=== PATIENT | male | born 1940 | race Caucasian/White ===

== ENCOUNTER 2019-01-21 15:40 | Inpatient (IN) | payer MEDICARE, OTHER ==
[~2019-01-21] VITALS: Ht 170.2 cm; Wt 70.3 kg
[2019-01-21] MEDS ORDERED: CHOL200078 PO (19:22)
[2019-01-21] MEDS ORDERED: ROSU10TA2 PO (19:22)
[2019-01-21] MEDS ORDERED: GLIM4TAB PO (19:22)
[2019-01-21] MEDS ORDERED: LISI-607 PO (19:22)
[2019-01-21] MEDS ORDERED: DONE5TAB7 PO (19:22)
[2019-01-21] MEDS ORDERED: GABA-534 PO (19:22)
[2019-01-21] MEDS ORDERED: GABA-532 PO ×2 (19:22)
[2019-01-21] MEDS ORDERED: CITA10TA17 PO (19:22)
[2019-01-21] MEDS ORDERED: DULA1.5P SQ (19:22)
[2019-01-21] MEDS ORDERED: NITR0.4T48 SL (19:22)
[2019-01-21] MEDS ORDERED: MONT10TA22 PO (19:22)
[2019-01-21] MEDS ORDERED: TAMS-3 PO (19:22)
[2019-01-21] MEDS ORDERED: CYAN-10 IJ (19:22)
[2019-01-21] MEDS ORDERED: ALBU8.5H8 IH (19:22)
[2019-01-21] MEDS ORDERED: GABA-536 PO (19:22)
[2019-01-21] MEDS ORDERED: MOME17SP NS (19:22)
[2019-01-21] MEDS ORDERED: AMLO5TAB4 PO (19:22)
[2019-01-21 19:32] VITALS: BP 119/51
--- NOTE | 2019-01-21 22:56 | NUR ---
Received pt resting in bed. Daughter at bedside. As per shift report, pt arrived at 1820. No acute distress noted. No c/o pain or discomfort. Pertinent assessments done. 1:1 sitter at bedside for safety. Pt tends to impulsively stand up and walk without assist, unsteady gait. Oriented pt to the unit and equipment. MRSA swab sent to lab. Belonging's list in chart. Safety measures maintained. Call light and personal belongings within reach. Will continue to monitor.
[2019-01-22 04:25] VITALS: BP 131/66
[2019-01-22 08:00] VITALS: BP 137/62
--- NOTE | 2019-01-22 08:00 | NUR ---
Received patient, awake alert x1 resting in bed. With periods of confusion with 1:1 sitter at bedside. Patient impulsive as well, with baseline LOC. No headache or chest pains or SOB noted. Not in apparent pain, not in any form of distress.
--- NOTE | 2019-01-22 09:00 | NUR ---
Paged assembly instructions writer to request for medication reconciliation. Still awaiting for physician assignment for patient
[2019-01-22] MEDS ORDERED: ICOS1CAP PO (10:22)
--- NOTE | 2019-01-22 10:30 | NUR ---
Up with occupational therapy, tolerating well. Not in any pain, was able to ambulate with FWW.
--- NOTE | 2019-01-22 10:40 | NUR ---
Dr Clark informed of admission and requested for medication reconciliation.
[2019-01-22] MEDS ORDERED: ALBUTEROL SULFATE 8 GM HFA.AER.AD IH PRN (16:45)
[2019-01-22] MEDS ORDERED: ALBUTEROL SULFATE 2.5 MG/3 ML NEBU NEB PRN (17:30)
[2019-01-22] MEDS: GABAPENTIN 100 MG CAPSULE PO SCH (17:37)
[2019-01-22 19:00] VITALS: BP 142/60
--- NOTE | 2019-01-22 19:40 | NUR ---
Received patient in bed. AAO x 1-2. No acute distress or SOB noted. On room air. No complain of pain or discomfort. Pertinent assessments done. 1:1 sitter at bedside for safety. Safety measures maintained. Call light and personal belongings within reach. Will continue to monitor.
[2019-01-22] MEDS: ATORVASTATIN 20 MG TABLET PO SCH (20:48)
[2019-01-22] MEDS ORDERED: DONEPEZIL 5 MG TABLET PO SCH (21:00)
[2019-01-22] MEDS ORDERED: MOMETASONE FUROATE NASAL 17 GM SPRAY.PUMP NS SCH (21:00)
[2019-01-22] MEDS ORDERED: ZOLPIDEM 5 MG TABLET PO PRN (21:45)
[2019-01-23 05:53] VITALS: BP 149/68
[2019-01-23 07:25] VITALS: BP 148/66
[2019-01-23] MEDS: AMLODIPINE 5 MG TABLET PO SCH (08:27)
[2019-01-23] MEDS: TAMSULOSIN HCL 0.4 MG CAP.SR.24H PO SCH (08:27)
[2019-01-23] MEDS: GABAPENTIN 100 MG CAPSULE PO SCH ×3 (08:27→17:30)
[2019-01-23] MEDS: GLIMEPIRIDE 4 MG TABLET PO SCH (08:27)
[2019-01-23] MEDS: CITALOPRAM 10 MG TABLET PO SCH (08:28)
[2019-01-23] MEDS: MONTELUKAST SODIUM 10 MG TABLET PO SCH (08:28)
[2019-01-23] MEDS: FLUTICASONE PROP NASAL SPRAY 16 GM BOTTLE NS SCH (08:28)
[2019-01-23] MEDS: LISINOPRIL 5 MG TABLET PO SCH (08:28)
--- NOTE | 2019-01-23 08:54 | NUR ---
Patient noted resting in bed with a 1:1 at bed side, no complaints of pain, no signs of distress, call light in reach, bed locked and in lowest position, all needs known
[2019-01-23 16:00] VITALS: BP 118/59
[2019-01-23 19:37] VITALS: BP 114/57
--- NOTE | 2019-01-23 20:02 | NUR ---
RECEIVED PATIENT AWAKE IN BED WITH 1:1 SITTER AT BEDSIDE. PATIENT IS ALERT TO SELF. CONFUSED BUT APPROPRIATE WHEN APPROACHED AND COOPERATIVE WITH CARE. VSS. PATIENT DENIES PAIN. NO FACIAL GRIMACE NOTED. BED ALARM ON. CALL LIGHT IN REACH. ALL NEEDS ATTENDED. WILL CONTINUE TO MONITOR AND ASSESS.
[2019-01-23] MEDS: ATORVASTATIN 20 MG TABLET PO SCH (20:15)
[2019-01-23 20:19] VITALS: BP 101/58
[2019-01-24 05:15] VITALS: BP 124/64
--- NOTE | 2019-01-24 07:56 | NUR ---
Patient noted resting in bed with a 1:1 at bed side, no complaints of pain, no signs of distress, call light in reach, bed locked and in lowest position, all needs known, medications found in patient's drawer by sitter, medications turned in to pharmacy at this time
[2019-01-24 07:57] VITALS: BP 129/42
[2019-01-24] MEDS: GLIMEPIRIDE 4 MG TABLET PO SCH (08:21)
[2019-01-24] MEDS: TAMSULOSIN HCL 0.4 MG CAP.SR.24H PO SCH (08:21)
[2019-01-24] MEDS: CITALOPRAM 10 MG TABLET PO SCH (08:21)
[2019-01-24] MEDS: AMLODIPINE 5 MG TABLET PO SCH (08:21)
[2019-01-24] MEDS: GABAPENTIN 100 MG CAPSULE PO SCH ×4 (08:21→20:23)
[2019-01-24] MEDS: MONTELUKAST SODIUM 10 MG TABLET PO SCH (08:21)
[2019-01-24] MEDS: FLUTICASONE PROP NASAL SPRAY 16 GM BOTTLE NS SCH (08:22)
[2019-01-24] MEDS: LISINOPRIL 5 MG TABLET PO SCH (08:22)
[2019-01-24 16:00] VITALS: BP 120/63
--- NOTE | 2019-01-24 18:57 | NUR ---
no changes this shift, vitals are within normal limits, continues on one to one sitter, all needs met
[2019-01-24 19:23] VITALS: BP 112/45
--- NOTE | 2019-01-24 19:41 | NUR ---
Received patient in bed. AAO x 3. No acute distress or SOB noted. On room air. No complain of pain or discomfort. Pertinent assessments done. 1:1 sitter at bedside for safety. Safety measures maintained. Call light and personal belongings within reach. Will continue to monitor.
[2019-01-24] MEDS: ATORVASTATIN 20 MG TABLET PO SCH (20:23)
[2019-01-24] MEDS: GABAPENTIN 300 MG CAPSULE PO SCH (20:23)
[2019-01-25 04:52] VITALS: BP 145/60
--- NOTE | 2019-01-25 06:57 | NUR ---
End of the shift note Patient was stable throughout the shift and had a good sleep last night. No signs of acute distress or SOB noted. Remained with 1:1 sitter for safety. All due medication given as ordered and well tolerated. All needs attended promptly. Safety measures observed. Fall prevention maintained. Bed in low position, brake and alarm on, side rails up x2 for her safety. Will continue to monitor and will endorse to oncoming nurse accordingly.
[2019-01-25 08:00] VITALS: BP 124/56
[2019-01-25] MEDS: CITALOPRAM 10 MG TABLET PO SCH (08:25)
[2019-01-25] MEDS: TAMSULOSIN HCL 0.4 MG CAP.SR.24H PO SCH (08:25)
[2019-01-25] MEDS: GABAPENTIN 100 MG CAPSULE PO SCH ×4 (08:25→21:19)
[2019-01-25] MEDS: AMLODIPINE 5 MG TABLET PO SCH (08:25)
[2019-01-25] MEDS: MONTELUKAST SODIUM 10 MG TABLET PO SCH (08:25)
[2019-01-25] MEDS: LISINOPRIL 5 MG TABLET PO SCH (08:25)
[2019-01-25] MEDS: FLUTICASONE PROP NASAL SPRAY 16 GM BOTTLE NS SCH (08:26)
[2019-01-25] MEDS: GLIMEPIRIDE 4 MG TABLET PO SCH (08:26)
[2019-01-25 09:48] LABS: BASOPHILS # (AUTO) 0.1 K/uL (0.0-8.0); BASOPHILS % (AUTO) 1.1 % (0.0-2.0); EOSINOPHILS # (AUTO) 0.2 K/uL (0.0-0.7); EOSINOPHILS % (AUTO) 3.1 % (0.0-7.0); HEMATOCRIT 38.2 % (36.7-47.1); HEMOGLOBIN 12.8 g/dL (12.5-16.3); LYMPHOCYTES # (AUTO) 1.2 K/uL (20.0-40.0); LYMPHOCYTES % (AUTO) 18.1 % (20.5-51.5); MEAN CORPUSCULAR HEMOGLOBIN 31.4 uug (23.8-33.4); MEAN CORPUSCULAR HGB CONC 33 g/dL (32.5-36.3); MEAN CORPUSCULAR VOLUME 94.1 fL (73.0-96.2); MONOCYTES # (AUTO) 0.7 K/uL (2.0-10.0); MONOCYTES % (AUTO) 10.3 % (0.0-11.0); NEUTROPHILS # (AUTO) 4.5 K/uL (1.8-8.9); NEUTROPHILS % (AUTO) 67.4 % (38.5-71.5); PLATELET COUNT (AUTO) 376 K/uL (152-348); RED BLOOD CELL COUNT(AUTO) 4.06 MIL/uL (4.06-5.63); WHITE BLOOD COUNT (AUTO) 6.6 K/uL (3.6-10.2)
[2019-01-25 10:00] LABS: ALANINE AMINOTRANSFERASE 41 U/L (16-63); ALKALINE PHOSPHATASE 83 U/L (50-136); ASPARTATE AMINOTRANSFERASE 22 U/L (15-37); BILIRUBIN,TOTAL 0.9 mg/dL (0.2-1.0); CARBON DIOXIDE 29 mmol/L (21-32); CHLORIDE 99 mmol/L (98-107); CREATININE 1.4 mg/dL (0.6-1.3); POTASSIUM 4.3 mmol/L (3.5-5.1); TOTAL PROTEIN, SERUM 6.9 g/dL (6.4-8.2); UREA NITROGEN, BLOOD 21 mg/dL (7-18)
[2019-01-25 10:06] LABS: GLUCOSE 362 mg/dL (74-106)
[2019-01-25] MEDS ORDERED: DEXTROSE 50% 50 ML DISP.SYRIN IV PRN (11:30)
[2019-01-25] MEDS: BLOOD SUGAR DIAGNOSTIC 1 EACH STRIP VI SCH ×3 (11:32→21:24)
--- NOTE | 2019-01-25 11:34 | NUR ---
Patient blood sugar critical value 362, relayed to MD Cuevas with order aggressive sliding scale. Repeat blood sugar with 213 . no signs of hyperglycemia noted. no complaint voiced. will continue monitor
[2019-01-25] MEDS: INSULIN REGULAR, HUMAN 300 UNIT/3 ML VIAL SQ PRN (11:41)
--- NOTE | 2019-01-25 15:35 | NUR ---
Patient's daughter requesting for trulicity for DM. Called the outside pharmacy as per daughter's request. Pharmacy is requesting for new prescription from MD. Pharmacy in house aware. will continue monitor
[2019-01-25 16:00] VITALS: BP 116/55
[2019-01-25 20:03] VITALS: BP 124/60
[2019-01-25] MEDS: GABAPENTIN 300 MG CAPSULE PO SCH (21:20)
[2019-01-25] MEDS: ATORVASTATIN 20 MG TABLET PO SCH (21:20)
[2019-01-25] MEDS: INSULIN REGULAR, HUMAN 300 UNITS/3 ML VIAL SQ PRN (21:30)
[2019-01-26 05:10] VITALS: BP 127/64
[2019-01-26] MEDS: BLOOD SUGAR DIAGNOSTIC 1 EACH STRIP VI SCH ×4 (07:37→20:42)
[2019-01-26] MEDS: INSULIN REGULAR, HUMAN 300 UNIT/3 ML VIAL SQ PRN ×3 (07:43→16:35)
[2019-01-26 08:00] VITALS: BP 123/53
[2019-01-26] MEDS: AMLODIPINE 5 MG TABLET PO SCH (08:24)
[2019-01-26] MEDS: TAMSULOSIN HCL 0.4 MG CAP.SR.24H PO SCH (08:24)
[2019-01-26] MEDS: MONTELUKAST SODIUM 10 MG TABLET PO SCH (08:24)
[2019-01-26] MEDS: CITALOPRAM 10 MG TABLET PO SCH (08:24)
[2019-01-26] MEDS: GLIMEPIRIDE 4 MG TABLET PO SCH (08:25)
[2019-01-26] MEDS: LISINOPRIL 5 MG TABLET PO SCH (08:25)
[2019-01-26] MEDS: GABAPENTIN 100 MG CAPSULE PO SCH ×4 (08:25→20:35)
[2019-01-26] MEDS: FLUTICASONE PROP NASAL SPRAY 16 GM BOTTLE NS SCH (08:26)
[2019-01-26 16:00] VITALS: BP 112/52
--- NOTE | 2019-01-26 16:21 | NUR ---
Social work note: Per initial social work assessment, patient requested resources for IHSS, caregiving, and mental health resources. road worker arrived at patient bedside and provided patient with the following caregiving resources: [facility] [[phone]], [facility] [[phone]], and [facility] [[phone]]. Patient was also provided with IHSS information and application phone number [[phone] or [phone]]. Patient was also provided with mental health resources including [facility] Crisis Line [ ], Johnna Hassan [ ], and National Suicide Prevention Lifeline [ ]. road worker will continue to remain available to patient as needed.
--- NOTE | 2019-01-26 17:57 | NUR ---
Patient refuse insulin for 168 blood sugar. no signs of hyperglycemia. MD Diez aware. Trulicity for DM available. notified. Awaiting for order. will continue monitor
--- NOTE | 2019-01-26 19:25 | NUR ---
SBAR received from day shift nurse. Patient alert and oriented x 1-2. Sitter and bedside for patient safety. Patient ambulatory, but confused. Able to state his name, but unable state date or where he is currently. No C/O SOB, pain, or distress at this time. Side rails up bilaterally for safety. Call light and frequently used items with in reach. Will continue to monitor.
[2019-01-26] MEDS: ATORVASTATIN 20 MG TABLET PO SCH (20:35)
[2019-01-26] MEDS: GABAPENTIN 300 MG CAPSULE PO SCH (20:35)
[2019-01-26 20:49] VITALS: BP 114/73
--- NOTE | 2019-01-26 21:01 | NUR ---
Patient refuse insulin for 178 BS. no signs of hyperglycemia. Will notify MD for repeat refusal. Trulicity for DM available. Will continue monitor.
[2019-01-27 06:30] VITALS: BP 128/57
[2019-01-27] MEDS: BLOOD SUGAR DIAGNOSTIC 1 EACH STRIP VI SCH ×4 (06:34→21:09)
--- NOTE | 2019-01-27 06:38 | NUR ---
Patient refuse insulin with BS at 159. 1:1 sitter maintained for safety. No C/O pain or distress at this time. Side rails up bilaterally for safety. Call light and frequently used items within reach. Will endorse to oncoming shift accordingly.
[2019-01-27 08:00] VITALS: BP 124/52
[2019-01-27] MEDS: GABAPENTIN 100 MG CAPSULE PO SCH ×4 (11:05→20:43)
[2019-01-27] MEDS: TAMSULOSIN HCL 0.4 MG CAP.SR.24H PO SCH (11:05)
[2019-01-27] MEDS: GLIMEPIRIDE 4 MG TABLET PO SCH (11:05)
[2019-01-27] MEDS: AMLODIPINE 5 MG TABLET PO SCH (11:06)
[2019-01-27] MEDS: LISINOPRIL 5 MG TABLET PO SCH (11:07)
[2019-01-27] MEDS: CITALOPRAM 10 MG TABLET PO SCH (11:07)
[2019-01-27] MEDS: MONTELUKAST SODIUM 10 MG TABLET PO SCH (11:07)
[2019-01-27] MEDS: FLUTICASONE PROP NASAL SPRAY 16 GM BOTTLE NS SCH (11:08)
[2019-01-27] MEDS ORDERED: TRULICITY (DULAGLUTIDE) 1.5MG/0.5ML SQ SCH (12:00)
[2019-01-27 16:00] VITALS: BP 108/51
[2019-01-27 19:49] VITALS: BP 127/59
[2019-01-27] MEDS: GABAPENTIN 300 MG CAPSULE PO SCH (20:43)
[2019-01-27] MEDS: ATORVASTATIN 20 MG TABLET PO SCH (20:43)
[2019-01-27] MEDS ORDERED: MUPIROCIN 2% OINT 22 GM TUBE NS SCH (21:00)
[2019-01-27] MEDS: INSULIN REGULAR, HUMAN 300 UNITS/3 ML VIAL SQ PRN (21:19)
--- NOTE | 2019-01-27 21:43 | NUR ---
Patient alert and oriented x 1-2. Sitter and bedside for patient safety. Patient ambulatory, but confused. No C/O SOB, pain, or distress at this time. Side rails up bilaterally for safety. Call light and frequently used items with in reach. Will continue to monitor.
[2019-01-28 05:29] VITALS: BP 116/64
[2019-01-28] MEDS: BLOOD SUGAR DIAGNOSTIC 1 EACH STRIP VI SCH ×4 (06:30→20:39)
--- NOTE | 2019-01-28 06:54 | NUR ---
Patient slept well during shift manager. 1:1 sitter maintained for safety. Morning BS low. Patient given orange juice to increase sugar. No C/O pain or distress at this time. Side rails up bilaterally for safety. Call light and frequently used items within reach. Will endorse to oncoming shift accordingly.
[2019-01-28 07:00] VITALS: BP 125/59
[2019-01-28] MEDS: AMLODIPINE 5 MG TABLET PO SCH (09:00)
[2019-01-28] MEDS: LISINOPRIL 5 MG TABLET PO SCH (09:00)
[2019-01-28] MEDS: TAMSULOSIN HCL 0.4 MG CAP.SR.24H PO SCH (10:07)
[2019-01-28] MEDS: GABAPENTIN 100 MG CAPSULE PO SCH ×4 (10:08→20:41)
[2019-01-28] MEDS: MONTELUKAST SODIUM 10 MG TABLET PO SCH (10:10)
[2019-01-28] MEDS: CITALOPRAM 10 MG TABLET PO SCH (10:11)
[2019-01-28] MEDS: GLIMEPIRIDE 4 MG TABLET PO SCH (10:12)
[2019-01-28] MEDS: FLUTICASONE PROP NASAL SPRAY 16 GM BOTTLE NS SCH (10:15)
--- NOTE | 2019-01-28 11:11 | NUR ---
INTERDISCIPLINARY TEAM CONFERENCE
[2019-01-28 16:00] VITALS: BP 129/59
[2019-01-28 19:39] VITALS: BP 141/65
--- NOTE | 2019-01-28 19:40 | NUR ---
Received patient in bed. AAO x 3. No acute distress or SOB noted. On room air. No complain of pain or discomfort. Pertinent assessments done. 1:1 sitter at bedside for safety. Safety measures maintained. Bed in low position, brake and alarm on, side rails up x2 for safety. Call light and personal belongings within reach. Will continue to monitor.
[2019-01-28] MEDS: GABAPENTIN 300 MG CAPSULE PO SCH (20:41)
[2019-01-28] MEDS: ATORVASTATIN 20 MG TABLET PO SCH (20:41)
--- NOTE | 2019-01-28 21:30 | NUR ---
Patient refuse 3 units insulin coverage for BS:173 at 2100. Risks and benefits explained. Still refused. Continue to monitor.
[2019-01-29 04:00] VITALS: BP 145/62
--- NOTE | 2019-01-29 04:29 | NUR ---
End of the shift note Patient was stable throughout the shift and had a good sleep last night. No signs of acute distress or SOB noted. Remained with 1:1 sitter for safety. Accu check done, BS: 173 @2100, patient refused insulin coverage. All due medication given as ordered and well tolerated. All needs attended promptly. Safety measures observed. Fall prevention maintained. Bed in low position, brake and alarm on, side rails up x2 for her safety. Will continue to monitor and will endorse to oncoming nurse accordingly.
[2019-01-29] MEDS: BLOOD SUGAR DIAGNOSTIC 1 EACH STRIP VI SCH ×4 (06:42→21:05)
--- NOTE | 2019-01-29 06:54 | NUR ---
Patient had low BS: 68 @ 0630. No other symptoms was observed. [place] juice given. Rechecked again BS:98. Continue to monitor and will endorse to the day shift nurse.
[2019-01-29 07:10] VITALS: BP 133/60
--- NOTE | 2019-01-29 08:00 | NUR ---
Patient awake, alert, verbally responsive, not in any form of acute distress. He denies any pain or discomfort at this time. 1:1 sitter at bedside.
[2019-01-29] MEDS: GLIMEPIRIDE 4 MG TABLET PO SCH (08:21)
[2019-01-29] MEDS: GABAPENTIN 100 MG CAPSULE PO SCH ×4 (08:21→20:58)
[2019-01-29] MEDS: TAMSULOSIN HCL 0.4 MG CAP.SR.24H PO SCH (08:21)
[2019-01-29] MEDS: CITALOPRAM 10 MG TABLET PO SCH (08:22)
[2019-01-29] MEDS: MONTELUKAST SODIUM 10 MG TABLET PO SCH (08:22)
[2019-01-29] MEDS: AMLODIPINE 5 MG TABLET PO SCH (08:22)
[2019-01-29] MEDS: FLUTICASONE PROP NASAL SPRAY 16 GM BOTTLE NS SCH (08:23)
[2019-01-29] MEDS: LISINOPRIL 5 MG TABLET PO SCH (08:30)
--- NOTE | 2019-01-29 13:00 | NUR ---
Patient refused insulin sliding scale for blood sugar of 159. Explained risks and benefits but patient still refused.
[2019-01-29 16:01] VITALS: BP 100/44
[2019-01-29] MEDS: INSULIN REGULAR, HUMAN 300 UNIT/3 ML VIAL SQ PRN (17:38)
[2019-01-29 20:33] VITALS: BP 124/65
[2019-01-29] MEDS: ATORVASTATIN 20 MG TABLET PO SCH (20:58)
[2019-01-29] MEDS: GABAPENTIN 300 MG CAPSULE PO SCH (20:58)
[2019-01-29] MEDS: INSULIN REGULAR, HUMAN 300 UNITS/3 ML VIAL SQ PRN (21:06)
--- NOTE | 2019-01-29 21:46 | NUR ---
aaox2-3 patient on 1:1 sitter. admitted for acute encepalopathy. compliant with care and meds. OOB to the BR with assit. Voiding well. VSS. tolerated po meds well. denies any pain at this time. No signs of agitation or restlessness noted. calm and cooperative. Accucheck @ 2100 is 163, with 3 units humalog insulin given as coverage. Tolerated po snacks well. will monitor patient.
[2019-01-30] MEDS: BLOOD SUGAR DIAGNOSTIC 1 EACH STRIP VI SCH ×4 (06:36→20:23)
--- NOTE | 2019-01-30 06:55 | NUR ---
slept well. sitter at bedside. accucheck 93 no acute distress noted. will monitor patient. VSS.
[2019-01-30 08:00] VITALS: BP 145/75
[2019-01-30] MEDS: GABAPENTIN 100 MG CAPSULE PO SCH ×4 (08:54→20:16)
[2019-01-30] MEDS: TAMSULOSIN HCL 0.4 MG CAP.SR.24H PO SCH (08:54)
[2019-01-30] MEDS: GLIMEPIRIDE 4 MG TABLET PO SCH (08:55)
[2019-01-30] MEDS: CITALOPRAM 10 MG TABLET PO SCH (08:55)
[2019-01-30] MEDS: AMLODIPINE 5 MG TABLET PO SCH (08:56)
[2019-01-30] MEDS: FLUTICASONE PROP NASAL SPRAY 16 GM BOTTLE NS SCH (08:56)
[2019-01-30] MEDS: LISINOPRIL 5 MG TABLET PO SCH (08:57)
[2019-01-30] MEDS: MONTELUKAST SODIUM 10 MG TABLET PO SCH (08:57)
--- NOTE | 2019-01-30 10:02 | NUR ---
Received pt. on bed, comfortable in no distress. A/Ox2-3 and able to make his needs known. Denies CP or SOB, on RA tolerating well with 96% SpO2. All due medications administered as ordered and tolerated well. On 1:1 sitter for behavior mgt and risk of fall. No s/sx of hypo/hyperglycemia. All pt. needs attended and met promptly. Safety measures in place. Call light and all frequently used items within pt. reach.
[2019-01-30] MEDS: INSULIN REGULAR, HUMAN 300 UNIT/3 ML VIAL SQ PRN ×2 (12:25→16:03)
[2019-01-30 16:00] VITALS: BP 117/60
--- NOTE | 2019-01-30 18:06 | NUR ---
End of shift note: No significant change during this shift. No sign of acute distress or SOB was noted. Kept pt clean and dry throughout this shift. Safety measures maintained. All needs attended and met promptly. Bed in low position, brake on, side rails up x2 as an enabler. Call light and all frequently used items within pt. reach. Will endorse to next shift accordingly
[2019-01-30 19:41] VITALS: BP 138/60
[2019-01-30] MEDS: GABAPENTIN 300 MG CAPSULE PO SCH (20:16)
[2019-01-30] MEDS: ATORVASTATIN 20 MG TABLET PO SCH (20:16)
[2019-01-30] MEDS: INSULIN REGULAR, HUMAN 300 UNITS/3 ML VIAL SQ PRN (20:24)
--- NOTE | 2019-01-30 20:43 | NUR ---
Received pt sitting in bed and talking on the phone. AAO x2-3, with episodes of forgetfulness. 1:1 sitter at bedside for safety. No acute distress noted. No c/o pain or discomfort. Blood sugar of 144, pt refused insulin. Risks and benefits explained, pt still refused. No s/s of hyper/hypoglycemia. Other due meds given as ordered. Safety measures maintained. Call light and personal belongings within reach. Will continue to monitor.
[2019-01-31 04:50] VITALS: BP 122/58
[2019-01-31] MEDS: BLOOD SUGAR DIAGNOSTIC 1 EACH STRIP VI SCH ×4 (06:42→20:31)
[2019-01-31 07:25] VITALS: BP 113/40
[2019-01-31] MEDS: GABAPENTIN 100 MG CAPSULE PO SCH ×4 (08:36→20:20)
[2019-01-31] MEDS: TAMSULOSIN HCL 0.4 MG CAP.SR.24H PO SCH (08:36)
[2019-01-31] MEDS: CITALOPRAM 10 MG TABLET PO SCH (08:36)
[2019-01-31] MEDS: GLIMEPIRIDE 4 MG TABLET PO SCH (08:37)
[2019-01-31] MEDS: MONTELUKAST SODIUM 10 MG TABLET PO SCH (08:37)
[2019-01-31] MEDS: FLUTICASONE PROP NASAL SPRAY 16 GM BOTTLE NS SCH (08:41)
[2019-01-31] MEDS: AMLODIPINE 5 MG TABLET PO SCH (08:41)
[2019-01-31] MEDS: LISINOPRIL 5 MG TABLET PO SCH (08:41)
[2019-01-31] MEDS: INSULIN REGULAR, HUMAN 300 UNIT/3 ML VIAL SQ PRN ×3 (08:41→16:04)
--- NOTE | 2019-01-31 09:27 | NUR ---
Received pt. on bed, comfortable in no distress. A/Ox2-3 and able to make his needs known. Denies CP or SOB, on RA tolerating well with 97% SpO2. All due medications administered as ordered and tolerated well. On 1:1 sitter for behavior mgt and risk of fall. No s/sx of hypo/hyperglycemia. All pt. needs attended and met promptly. Safety measures in place. Call light and all frequently used items within pt. reach.
[2019-01-31 15:58] VITALS: BP 117/59
--- NOTE | 2019-01-31 19:45 | NUR ---
Received patient in bed. AAO x2 . No acute distress or SOB noted. On room air. No complain of pain or discomfort. Pertinent assessments done. 1:1 sitter at bedside for safety. Safety measures maintained. Bed in low position, brake and alarm on, side rails up x2 for safety. Call light and personal belongings within reach. Will continue to monitor.
[2019-01-31 20:13] VITALS: BP 116/59
[2019-01-31] MEDS: GABAPENTIN 300 MG CAPSULE PO SCH (20:20)
[2019-01-31] MEDS: ATORVASTATIN 20 MG TABLET PO SCH (20:20)
[2019-01-31] MEDS: INSULIN REGULAR, HUMAN 300 UNITS/3 ML VIAL SQ PRN (20:30)
--- NOTE | 2019-02-01 05:40 | NUR ---
End of the shift note Patient was stable throughout the shift and had a good sleep last night. No signs of acute distress or SOB noted. Remained with 1:1 sitter for safety. Accu check done, BS: 236 @2100, with 4 units insulin coverage based on sliding scale. All due medication given as ordered and well tolerated. All needs attended promptly. Safety measures observed. Fall prevention maintained. Bed in low position, brake and alarm on, side rails up x2 for her safety. Will continue to monitor and will endorse to oncoming nurse accordingly.
[2019-02-01 06:08] VITALS: BP 123/61
[2019-02-01] MEDS: BLOOD SUGAR DIAGNOSTIC 1 EACH STRIP VI SCH ×4 (06:31→20:25)
[2019-02-01 08:00] VITALS: BP 124/56
[2019-02-01] MEDS: GLIMEPIRIDE 4 MG TABLET PO SCH (08:12)
[2019-02-01] MEDS: LISINOPRIL 5 MG TABLET PO SCH (08:12)
[2019-02-01] MEDS: TAMSULOSIN HCL 0.4 MG CAP.SR.24H PO SCH (08:12)
[2019-02-01] MEDS: AMLODIPINE 5 MG TABLET PO SCH (08:14)
[2019-02-01] MEDS: MONTELUKAST SODIUM 10 MG TABLET PO SCH (08:15)
[2019-02-01] MEDS: FLUTICASONE PROP NASAL SPRAY 16 GM BOTTLE NS SCH (08:15)
[2019-02-01] MEDS: CITALOPRAM 10 MG TABLET PO SCH (08:15)
[2019-02-01] MEDS: GABAPENTIN 100 MG CAPSULE PO SCH ×4 (08:15→20:20)
[2019-02-01] MEDS: INSULIN REGULAR, HUMAN 300 UNIT/3 ML VIAL SQ PRN (11:45)
[2019-02-01 16:00] VITALS: BP 133/68
--- NOTE | 2019-02-01 17:58 | NUR ---
Patient continue on therapy for ambulation, ADL and transfer ability. for discharge tomorrow around 3pm at [facility]. TMS to be check by ANDIE TIPTON. will continue monitor
[2019-02-01] MEDS: ATORVASTATIN 20 MG TABLET PO SCH (20:20)
[2019-02-01] MEDS: GABAPENTIN 300 MG CAPSULE PO SCH (20:21)
[2019-02-01] MEDS: INSULIN REGULAR, HUMAN 300 UNITS/3 ML VIAL SQ PRN (20:26)
[2019-02-01 20:27] VITALS: BP 119/50
--- NOTE | 2019-02-01 20:55 | NUR ---
resting in bed upon initial rounds. aaox2-3 with periods of confusion and forgetfulness at times. Reoriented to people, places and surroundings. Compliant with meds. Denies any pain nor any discomfort. Accucheck @ 2100 was 195, with 3 units humalog given as coverage. Needs attended. Patient going to [facility] in am. VSS. patient aware of patient leaving in am. Will monitor patient.
[2019-02-02 04:34] VITALS: BP 138/68
--- NOTE | 2019-02-02 06:13 | NUR ---
slept well most of the shift. aaox2-3 no acute distress noted. needs attended. VSS. fod discharge this am. will monitor patient.
[2019-02-02] MEDS: BLOOD SUGAR DIAGNOSTIC 1 EACH STRIP VI SCH ×2 (06:32→11:39)
[2019-02-02 08:00] VITALS: BP 137/53
[2019-02-02] MEDS: TAMSULOSIN HCL 0.4 MG CAP.SR.24H PO SCH (08:05)
[2019-02-02] MEDS: GABAPENTIN 100 MG CAPSULE PO SCH ×2 (08:05→12:07)
[2019-02-02] MEDS: AMLODIPINE 5 MG TABLET PO SCH (08:06)
[2019-02-02] MEDS: CITALOPRAM 10 MG TABLET PO SCH (08:06)
[2019-02-02 08:07] VITALS: BP 137/52
[2019-02-02] MEDS: LISINOPRIL 5 MG TABLET PO SCH (08:07)
[2019-02-02] MEDS: MONTELUKAST SODIUM 10 MG TABLET PO SCH (08:07)
[2019-02-02] MEDS: GLIMEPIRIDE 4 MG TABLET PO SCH (08:09)
[2019-02-02] MEDS: FLUTICASONE PROP NASAL SPRAY 16 GM BOTTLE NS SCH (08:10)
--- NOTE | 2019-02-02 08:15 | NUR ---
Received patient awake, alert x2. With periods of forgetfulness. With 1:1 sitter at bedside. No s/s of hypoglycemia. No chest pains or SOB noted. For possible discharge today.
--- NOTE | 2019-02-02 10:33 | NUR ---
REPORT GIVEN TO UMAIR FROM [facility].
[2019-02-02] MEDS: INSULIN REGULAR, HUMAN 300 UNIT/3 ML VIAL SQ PRN (11:44)
--- NOTE | 2019-02-02 15:55 | NUR ---
Dr. Friedman made aware of discharge, obtained discharge order. Discharge packet given to EMT. Discharge instructions and education given to patient. Instructed to take medications as prescribed. Instructed to follow-up with Dr Padron on 02/04/19 at 1445. Discharge in stable condition accompanied by EMT.
== END 2019-02-02 14:36 | DRG 57 ==
PROVIDERS: ADMIT Physical Medicine & Rehabilitation Pain Medicine; ATTEND Physical Medicine & Rehabilitation Pain Medicine
DX: I69.198 Other sequelae of nontraumatic intracerebral hemorrhage (principal); G93.40 Encephalopathy, unspecified; B19.20 Unspecified viral hepatitis C without hepatic coma; E11.22 Type 2 diabetes mellitus with diabetic chronic kidney disease; E11.51 Type 2 diabetes mellitus with diabetic peripheral angiopathy without gangrene; I12.9 Hypertensive chronic kidney disease with stage 1 through stage 4 chronic kidney disease, or unspecified chronic kidney disease; N18.3 Chronic kidney disease, stage 3 (moderate); N40.0 Benign prostatic hyperplasia without lower urinary tract symptoms; J45.909 Unspecified asthma, uncomplicated; I25.10 Atherosclerotic heart disease of native coronary artery without angina pectoris; Z95.5 Presence of coronary angioplasty implant and graft; R42 Dizziness and giddiness; E78.5 Hyperlipidemia, unspecified; H54.62 Unqualified visual loss, left eye, normal vision right eye; I68.0 Cerebral amyloid angiopathy; R13.12 Dysphagia, oropharyngeal phase; Z88.2 Allergy status to sulfonamides; Z88.8 Allergy status to other drugs, medicaments and biological substances
CPT/HCPCS: 36415; 70030-TC; 85025; 92523; 97110; 97112; 97116; 97165; 97530; 97535; A4663; J1815; J3535